=== PATIENT | female | born 1965 | race Hispanic/Latino ===

== ENCOUNTER 2024-04-22 06:29 | Day surgery (SDC) | payer BC ==
[2024-04-21 11:47] LABS: Absolute Basophils 0.1 K/uL (0-0.5); Absolute Eosinophils 0.2 K/uL (0-0.5); Absolute Lymphocytes (CBC) 2.7 K/uL (0.7-4.9); Absolute Monocytes 0.5 K/uL (0.1-1.3); Absolute Neutrophil 3.9 K/uL (1.8-8.0); Eosinophils % 2.6 % (0-4.4); Hematocrit 39.6 % (36.0-45.0); Hemoglobin 13.2 g/dL (12.0-15.0); Lymphocytes % 36.6 % (15.3-44.8); MCH 31.9 pg (27.0-35.0); MCHC 33.3 g/dL (32.0-36.0); MCV 95.8 fL (80-100); MPV 8.9 fL (7.6-11.3); Monocytes % 6.9 % (3.3-12.3); Neutrophils % 52.9 % (41.7-73.7); Platelets 273 thou/uL (152-406); RBC Red Blood Cell Count 4.14 M/uL (3.86-4.86); Red Cell Distribution Width 13.6 % (12.1-15.2)
[2024-04-21 12:00] LABS: Anion Gap 8.8 mEq/L (5.0-15.0); Potassium 3.8 mEq/L (3.5-5.1)
--- NOTE | 2024-04-21 12:33 | RAD REPORT ---
EXAM: Chest Pa And Lat (2 Views) HISTORY: pre operative COMPARISON: None. FINDINGS: LUNGS/PLEURA: The lungs are clear. No pleural effusions or pneumothorax. No pulmonary edema. MEDIASTINUM: The mediastinal silhouette is within normal limits. CARDIAC: The cardiac silhouette is within normal limits. UPPER ABDOMEN: No significant abnormality. BONES: No acute fracture. Scoliosis. LINES/TUBES/OTHER: N/A IMPRESSION: No evidence of acute cardiopulmonary disease.
[2024-04-22] MEDS: Ringers Lactate 1,000 ML IV ONE (07:00)
[2024-04-22] MEDS ORDERED: FENTANYL CITR 100 MCG/2 ML ONE ×3 (07:12→08:05)
[2024-04-22] MEDS ORDERED: propofoL 200 MG/20 ML VIAL IV ONE ×2 (07:12→07:19)
[2024-04-22] MEDS ORDERED: MIDAZOLAM HCL 2 MG/2 ML INJ ONE ×2 (07:12→07:19)
[2024-04-22] MEDS ORDERED: ONDANSETRON 4 MG/2 ML VIAL ONE (07:12)
[2024-04-22] MEDS ORDERED: ROCURONIUM 50 MG/5 ML VIAL IV ONE ×2 (07:12→07:19)
[2024-04-22] MEDS ORDERED: LIDOCAINE 2% MPF 5 ML VIAL ONE (07:12)
[2024-04-22] MEDS: CEFAZOLIN SODIUM 1 GM/VIAL ONE (07:42)
[2024-04-22] MEDS ORDERED: dexAMETHasone 10 MG/ML VIAL ONE (07:44)
[2024-04-22] MEDS ORDERED: GLYCOPYRROLATE 0.2 MG/ML SYR ONE (07:48)
[2024-04-22] MEDS ORDERED: KETOROLAC 30 MG/ML INJ ONE (09:09)
[2024-04-22] MEDS: HYDROMORPHONE HCL 1 MG/ML INJ ONE (09:50)
--- NOTE | 2024-04-22 09:50 | P.BOP ---
Preoperative diagnosis: large ventral umbilical hernia 9.1 cm Postoperative diagnosis: same Primary procedure: 1. Laparoscopic repair of large ventral umbilical hernia with mesh Secondary procedure: 2. Extensive Lysis of adhesions Estimated blood loss: <50cc Specimen: sac, omentum Findings: Large amt of incarcerated omentum ligated Anesthesia: General Complications: None Implants: large ventralex mesh Transferred to: Recovery Room Condition: Good
[2024-04-22] MEDS: TRAMADOL HCL 50 MG TAB ONE (10:32)
[2024-04-22 11:01] VITALS: BP 132/62; TEMP 97; O2SAT 96
--- NOTE | 2024-04-22 19:58 | OP ---
Date of Procedure: 04/22/2024 Surgeon: Saeid Gabriel MD Preoperative Diagnosis: Large ventral umbilical hernia, 9.1 cm. Postoperative Diagnosis: Large ventral umbilical hernia, 9.1 cm. Procedures: Laparoscopic repair of large ventral umbilical hernia with mesh and extensive lysis of a dhesions. Estimated Blood Loss: Less than 50 cc. Specimens: Sac and omentum. Findings: Large amount of omentum incarcerated on the hernia. The is about 9.1 cm. The defect in the ventral region is about 3 cm. There is also a large amount of omentum that cannot be r educed, have to be ligated. Also, intraabdominal adhesions with omentum attached to the anterior abd ominal wall that have to be removed before the mesh can be placed in. The part of the lysis of adhes ions took about half the time of the entire case. Anesthesia: General plus local. Complications: None. Mesh: Ventralex large size. Indications: This is the case of a 59-year-old patient who came to us with a large umbilical hernia, incarcerated. The benefits, alternatives, and risks of excision with mesh were fully explained, whi ch include, but not limited to infection, bleeding, damage to adjacent structures, anesthesia complic ation, recurrence, DC, and even . She also understands this may not relieve any symptoms. She might need more than one surgical intervention. She understood, signed a consent. Description Of Procedure: The patient was brought to the operating room, placed in supine position. Anesthesia was without complication. Abdominal area was prepped and draped in a sterile fashion. A time-out was called. Incision was made on the periumbilical area. Incision was carried down to the hernia region, but incarceration was so large that we had to extend the incision in the belly button to be able to secure that omentum in place and ligate most of that omentum coming through between Ke lly clamps and 0 chromic. At that moment, we were able to reduce that, removed the hernia sac, and n oticed the fascial edges needs some reinforcement with the mesh due to the quality of it, so we put a Prolene #1 in a [id number] fashion multiple times and then after that, we put a Adamaris trocar t hrough the defect. This allowed me to visualize the area a little bit better. I put a 5 mm trocar t o the left and right of the abdomen, changed the cameras, and noticed the patient has still many adhe sions of omentum to the anterior abdominal wall. So, using the LigaSure, we proceeded to sequentiall y remove those adhesions until we have the anterior abdominal wall completely clean. In that area, w e were able to measure the size of the hernia properly and then selected the mesh to overlap the defe ct by about 3-5 cm. That was a large Ventralex mesh that was placed through the trocar, pulled again st the abdominal wall. I used SorbaFix to fixate multiple points under direct visualization with the video camera. Then, after that, we cut the straps of this mesh and then tied the buiftu-ye-ncora fa shion #1 Prolene to close the defect obtaining a seal closure. Then, with pneumoperitoneum once agai n obtained, we further fixated the mesh to the anterior abdominal wall circumferentially to diminish the chance of any intestines coming in between. After that, I checked for the area of lysis of adhes ions, no bleeding. Omentum that was ligated, no bleeding. No enterotomies. Mesh looked nice and fl at against the abdominal wall. So, the pneumoperitoneum was deflated and then we had to close the la rge cavity that the content of this hernia was left in the subcutaneous tissue to diminish the chance of seroma. We used that with the help of 0 chromic and then closed the defects with 3-0 chromic in a subcuticular fashion after injecting local anesthetic. Irrigation was done before closure. The pa giovana tolerated the procedure well. The patient was sent to recovery in stable condition. PEGGY/YULISSA Voice ID: [id number] Report ID: [id number]
--- NOTE | 2024-04-23 08:35 | DS ---
Date of Discharge: 04/22/2024 Diagnosis: Large ventral umbilical hernia. Procedures: Laparoscopic repair of large ventral umbilical hernia with mesh and extensive lysis of a dhesions. Disposition: The patient will be discharged home. Condition: Stable. Activity: As tolerated. No heavy lifting. Discharge Instructions: Follow up in my office in 1 week. Call for appointment [phone]. Keep area intact until she sees us once again in the office. Abdominal binder while she is out of bed. PEGGY/YULISSA Voice ID: [id number] Report ID: [id number]
== END 2024-04-22 11:11 | disposition home or self-care (01) ==
LOC: OR 06:29
PROVIDERS: ATTEND Surgery
PROC: 0DNU4ZZ Release Omentum, Percutaneous Endoscopic Approach (ICD-10-PCS; 2024-04-22)
PROC: 0WUF4JZ Supplement Abdominal Wall with Synthetic Substitute, Percutaneous Endoscopic Approach (ICD-10-PCS; principal; 2024-04-22 07:30)
DX: K42.0 Umbilical hernia with obstruction, without gangrene (principal); K66.0 Peritoneal adhesions (postprocedural) (postinfection); I10 Essential (primary) hypertension; F32.A Depression, unspecified
CPT/HCPCS: 49329; 93005; 85025; 80048; 36415; 88302; 71046; 49594; J2704; J2003; J2250; J3010 ×2; J1100; J1171; J2405; J7120; J0690

== ENCOUNTER 2025-03-10 12:37 | Observation (INO) | payer BC ==
--- OUTSIDE RECORDS SUMMARY | 2025-03-10 12:42 | XMS REPORT | Continuity of Care Document ---
Author Name Unknown Address [address] [facility] [facility] [address] [place] [address] Organization [facility] Address [address] [facility] [address] [place] [address] Care Team Providers Care Ski Tow Operator Name Role Phone Lanre Caballero Attending Clinician Unavailable Payers Payer Name Policy Type Policy Number Effective Date Expirati on Date Source [facility] [id number] [facility] AETNA 53 [id number] [facility] Problems Condition Name Condition Details Condition Category Status Onset Date Resolution Date Last Treatment Date Treating Clinician Comments Source Adult BMI 38.0-38.9 kg/sq m Adult BMI 38.0-38.9 kg/sq m Problem [facility] Morbid obesity due to excess calories Morbid obesity due to excess calories Problem [facility] Stage 3a chronic kidney disease Stage 3a chronic kidney disease Problem [facility] Pain, joint, knee, right Pain, joint, knee, right Problem [facility] Unilateral primary osteoarthr itis, left knee Unilateral primary osteoarthr itis, left knee Problem [facility] Tobacco use disorder Tobacco use disorder Problem [facility] Body mass index (BMI) of 40.0-44.9 in adult Body mass index (BMI) of 40.0-44.[address] [facility] Sciatica, right side Sciatica, right side Problem [facility] Abnormal mammogram Abnormal mammogram Problem [facility] Primary osteoarthr itis of right knee Primary osteoarthr itis of right knee Problem [facility] Depression with anxiety Depression with anxiety Problem [facility] Mixed hyperlipid emia Mixed hyperlipid emia Problem [facility] HTN, goal below 140/90 HTN, goal below 140/[address] [facility] Hyperkalem ia Hyperkalem ia Problem [facility] Allergies, Adverse Reactions, Alerts Allergy Name Allergy Type Status Severity Reaction(s) Onset Date Inactive Date Treating Clinician Comments Source Codeine Codeine Active Unknown [facility] Social History Social Habit Start Date Stop Date Quantity Comments Source History of Tobacco Use Current Smoker [facility] Sex Assigned At [facility] Smoking Status Start Date Stop Date Source Current Smoker 2025-02-18 00:00:00 [facility] Never Smoker [facility] Medications Ordered Medication Name Filled Medication Name Start Date Stop Date Current Medication? Ordering Clinician Indication Dosage Frequency Signature (SIG) Comments Components Source Depo Medrol (40mg) Depo Medrol (40mg) 01-29 00:00: [address] [facility] Bupivicaine Warwick Bupivicaine Warwick 01-29 00:00: [address] [facility] Losartan Potassium-H CTZ 50-12.5 MG Losartan Potassium-H CTZ 50-12.5 MG No 1{table t} QD Losartan Potassium- HCTZ 50-12.5 MG Montelukast Sodium 10 MG Montelukast Sodium 10 MG No 1{table t} QD Montelukas t Sodium 10 MG Gabapentin 300 MG Gabapentin 300 MG No 1{capsu le} QD Gabapentin 300 MG Citalopram Hydrobromid e 20 MG Citalopram Hydrobromid e 20 MG No 1{table t} QD Citalopram Hydrobromi de 20 MG Immunizations Ordered Immunization Name Filled Immunization Name Date Status Comments Source Afluria single dose Afluria single dose 08:05:[address] [facility] Afluria single dose Afluria single dose 08:05:[address] [facility] Afluria single dose Afluria single dose 08:05:[address] [facility] Afluria single dose Afluria single dose 08:05:[address] [facility] Pneumovax (PPSV23) Pneumovax (PPSV23) 2019-04-17 09:25:[address] [facility] Pneumovax (PPSV23) Pneumovax (PPSV23) 2019-04-17 09:25:[address] [facility] Pneumovax (PPSV23) Pneumovax (PPSV23) 2019-04-17 09:25:[address] [facility] Pneumovax (PPSV23) Pneumovax (PPSV23) 2019-04-17 09:25:[address] [facility] Adacel (Tdap) Adacel (Tdap) 2019-04-17 09:24:[address] [facility] Adacel (Tdap) Adacel (Tdap) 2019-04-17 09:24:[address] [facility] Adacel (Tdap) Adacel (Tdap) 2019-04-17 09:24:[address] [facility] Adacel (Tdap) Adacel (Tdap) 2019-04-17 09:24:[address] [facility] Depo Medrol (40mg) Depo Medrol (40mg) 2018-01-29 09:06:[address] [facility] Bupivicaine Warwick Bupivicaine Warwick 2018-01-29 09:04:[address] [facility] Afluria single dose Afluria single dose Unknown Completed [facility] Pneumovax (PPSV23) Pneumovax (PPSV23) Unknown Completed [facility] Adacel (Tdap) Adacel (Tdap) Unknown Completed [facility] Afluria single dose Afluria single dose Unknown Completed [facility] Pneumovax (PPSV23) Pneumovax (PPSV23) Unknown Completed [facility] Adacel (Tdap) Adacel (Tdap) Unknown Completed [facility] Afluria single dose Afluria single dose Unknown Completed [facility] Pneumovax (PPSV23) Pneumovax (PPSV23) Unknown Completed [facility] Adacel (Tdap) Adacel (Tdap) Unknown Completed [facility] Afluria single dose Afluria single dose Unknown Completed [facility] Pneumovax (PPSV23) Pneumovax (PPSV23) Unknown Completed [facility] Adacel (Tdap) Adacel (Tdap) Unknown Completed [facility] Adacel (Tdap) Adacel (Tdap) Unknown Completed [facility] Pneumovax (PPSV23) Pneumovax (PPSV23) Unknown Completed [facility] Afluria single dose Afluria single dose Unknown Completed [facility] Afluria single dose Afluria single dose Unknown Completed [facility] Pneumovax (PPSV23) Pneumovax (PPSV23) Unknown Completed [facility] Adacel (Tdap) Adacel (Tdap) Unknown Completed [facility] Afluria (IIV4) - 3 years and older - SDS - 0.5mL Afluria (IIV4) - 3 years and older - SDS - 0.5mL Unknown Completed [facility] Pneumovax (PPSV23) Pneumovax (PPSV23) Unknown Completed [facility] Adacel (Tdap) Adacel (Tdap) Unknown Completed Co [facility] Afluria (IIV4) - 3 years and older - SDS - 0.5mL Afluria (IIV4) - 3 years and older - SDS - 0.5mL Unknown Completed [facility] Pneumovax (PPSV23) Pneumovax (PPSV23) Unknown Completed [facility] Adacel (Tdap) Adacel (Tdap) Unknown Completed [facility] Afluria (IIV4) - 3 years and older - SDS - 0.5mL Afluria (IIV4) - 3 years and older - SDS - 0.5mL Unknown Completed [facility] Pneumovax (PPSV23) Pneumovax (PPSV23) Unknown Completed [facility] Adacel (Tdap) Adacel (Tdap) Unknown Completed Co on [facility] Afluria (IIV4) - 3 years and older - SDS - 0.5mL Afluria (IIV4) - 3 years and older - SDS - 0.5mL Unknown Completed [facility] Pneumovax (PPSV23) Pneumovax (PPSV23) Unknown Completed [facility] Adacel (Tdap) Adacel (Tdap) Unknown Completed Co on [facility] Afluria (IIV4) - 3 years and older - SDS - 0.5mL Afluria (IIV4) - 3 years and older - SDS - 0.5mL Unknown Completed [facility] Pneumovax (PPSV23) Pneumovax (PPSV23) Unknown Completed [facility] Adacel (Tdap) Adacel (Tdap) Unknown Completed Co on [facility] Afluria (IIV4) - 3 years and older - SDS - 0.5mL Afluria (IIV4) - 3 years and older - SDS - 0.5mL Unknown Completed [facility] Pneumovax (PPSV23) Pneumovax (PPSV23) Unknown Completed [facility] Adacel (Tdap) Adacel (Tdap) Unknown Completed Co on [facility] Afluria (IIV4) - 3 years and older - SDS - 0.5mL Afluria (IIV4) - 3 years and older - SDS - 0.5mL Unknown Completed [facility] Pneumovax (PPSV23) Pneumovax (PPSV23) Unknown Completed [facility] Adacel (Tdap) Adacel (Tdap) Unknown Completed Co on [facility] Afluria (IIV4) - 3 years and older - SDS - 0.5mL Afluria (IIV4) - 3 years and older - SDS - 0.5mL Unknown Completed [facility] Pneumovax (PPSV23) Pneumovax (PPSV23) Unknown Completed [facility] Adacel (Tdap) Adacel (Tdap) Unknown Completed Co on [facility] Afluria (IIV4) - 3 years and older - SDS - 0.5mL Afluria (IIV4) - 3 years and older - SDS - 0.5mL Unknown Completed [facility] Pneumovax (PPSV23) Pneumovax (PPSV23) Unknown Completed [facility] Adacel (Tdap) Adacel (Tdap) Unknown Completed Co [facility] Fluad (IIV) - SDS - 0.5mL Fluad (IIV) - SDS - 0.5mL Unknown Completed [facility] Vital Signs Vital Name Observation Time Observation Value Comments S ource height 2025-02-18 15:30:00 63.5 [in_i] Comm on [facility] weight 2025-02-18 15:30:00 232 [lb_av] Comm on [facility] temperature 2025-02-18 15:30:00 97.3 [degF] Com mon [facility] bmi 2025-02-18 15:30:00 40.45 kg/m2 Comm on [facility] oximetry 2025-02-18 15:30:00 99 % Commo n [facility] respiratory rate 2025-02-18 15:30:00 16 /min [facility] blood pressure systolic 2025-02-18 15:30:00 126 mm[Hg] [facility] blood pressure diastolic 2025-02-18 15:30:00 80 mm[Hg] [facility] height 2024-11-17 15:15:00 63.5 [in_i] Comm on [facility] weight 2024-11-17 15:15:00 228 [lb_av] Comm on [facility] temperature 2024-11-17 15:15:00 97.2 [degF] Com mon [facility] bmi 2024-11-17 15:15:00 39.75 kg/m2 Comm on [facility] oximetry 2024-11-17 15:15:00 94 % Commo n [facility] respiratory rate 2024-11-17 15:15:00 16 /min Common [facility] blood pressure systolic 2024-11-17 15:15:00 124 mm[Hg] [facility] blood pressure diastolic 2024-11-17 15:15:00 76 mm[Hg] Common [facility] height 2024-07-22 14:30:00 63.5 [in_i] Comm on [facility] weight 2024-07-22 14:30:00 222.2 [lb_av] Co mmon [facility] temperature 2024-07-22 14:30:00 97.3 [degF] Com mon [facility] bmi 2024-07-22 14:30:00 38.74 kg/m2 Comm on [facility] oximetry 2024-07-22 14:30:00 96 % Commo [facility] heart rate 2024-07-22 14:30:00 78 /min Com[facility] respiratory rate 2024-07-22 14:30:00 17 /min Common [facility] blood pressure systolic 2024-07-22 14:30:00 112 mm[Hg] Common [facility] blood pressure diastolic 2024-07-22 14:30:00 68 mm[Hg] [facility] height 2024-03-02 14:30:00 63.5 [in_i] Comm on [facility] weight 2024-03-02 14:30:00 221.3 [lb_av] Co mmon [facility] temperature 2024-03-02 14:30:00 97.7 [degF] Com mon [facility] bmi 2024-03-02 14:30:00 38.58 kg/m2 Comm on [facility] blood pressure systolic 2024-03-02 14:30:00 138 mm[Hg] Common [facility] blood pressure diastolic 2024-03-02 14:30:00 81 mm[Hg] [facility] height 2024-01-22 13:30:00 63.5 [in_i] Comm on [facility] weight 2024-01-22 13:30:00 222 [lb_av] Comm on [facility] temperature 2024-01-22 13:30:00 97.3 [degF] Com mon [facility] bmi 2024-01-22 13:30:00 38.7 kg/m2 Commo [facility] oximetry 2024-01-22 13:30:00 95 % Commo [facility] respiratory rate 2024-01-22 13:30:00 17 /min Common [facility] blood pressure systolic 2024-01-22 13:30:00 128 mm[Hg] [facility] blood pressure diastolic 2024-01-22 13:30:00 58 mm[Hg] Common [facility] height 2024-01-22 13:30:00 63.5 [in_i] Comm on [facility] weight 2024-01-22 13:30:00 222 [lb_av] Comm on [facility] temperature 2024-01-22 13:30:00 97.3 [degF] Com mon [facility] bmi 2024-01-22 13:30:00 38.7 kg/m2 Commo [facility] oximetry 2024-01-22 13:30:00 95 % Commo [facility] respiratory rate 2024-01-22 13:30:00 17 /min Common [facility] blood pressure systolic 2024-01-22 13:30:00 128 mm[Hg] Common [facility] blood pressure diastolic 2024-01-22 13:30:00 58 mm[Hg] Common [facility] height 2023-05-14 16:00:00 63.5 [in_i] Comm on [facility] weight 2023-05-14 16:00:00 186.6 [lb_av] Co on [facility] bmi 2023-05-14 16:00:00 32.53 kg/m2 Comm on [facility] height 2023-01-09 15:40:00 63.5 [in_i] Comm on [facility] weight 2023-01-09 15:40:00 220.0 [lb_av] Co [facility] temperature 2023-01-09 15:40:00 98.2 [degF] Com mon [facility] bmi 2023-01-09 15:40:00 38.36 kg/m2 Comm on [facility] oximetry 2023-01-09 15:40:00 97 % Commo [facility] respiratory rate 2023-01-09 15:40:00 17 /min Common [facility] blood pressure systolic 2023-01-09 15:40:00 123 mm[Hg] Common [facility] blood pressure diastolic 2023-01-09 15:40:00 68 mm[Hg] Common [facility] height 2022-09-11 15:40:00 63.5 [in_i] Comm on [facility] weight 2022-09-11 15:40:00 211 [lb_av] Comm on [facility] temperature 2022-09-11 15:40:00 98 [degF] Comm on [facility] bmi 2022-09-11 15:40:00 36.79 kg/m2 Comm on [facility] blood pressure systolic 2022-09-11 15:40:00 132 mm[Hg] [facility] blood pressure diastolic 2022-09-11 15:40:00 72 mm[Hg] [facility] height 2022-09-04 15:00:00 63.5 [in_i] Comm on [facility] weight 2022-09-04 15:00:00 211.9 [lb_av] Co mmon [facility] temperature 2022-09-04 15:00:00 97.6 [degF] Com mon [facility] bmi 2022-09-04 15:00:00 36.94 kg/m2 Comm on [facility] blood pressure systolic 2022-09-04 15:00:00 136 mm[Hg] Common [facility] blood pressure diastolic 2022-09-04 15:00:00 78 mm[Hg] Common [facility] height 2022-05-08 16:50:00 63.5 [in_i] Comm on [facility] weight 2022-05-08 16:50:00 220 [lb_av] Comm on [facility] temperature 2022-05-08 16:50:00 98 [degF] Comm on [facility] bmi 2022-05-08 16:50:00 38.36 kg/m2 Comm on [facility] blood pressure systolic 2022-05-08 16:50:00 138 mm[Hg] [facility] blood pressure diastolic 2022-05-08 16:50:00 76 mm[Hg] Common [facility] height 2022-01-08 08:00:00 63.5 [in_i] Comm on [facility] weight 2022-01-08 08:00:00 221 [lb_av] Comm on [facility] temperature 2022-01-08 08:00:00 97.6 [degF] Com mon [facility] bmi 2022-01-08 08:00:00 38.53 kg/m2 Comm on [facility] oximetry 2022-01-08 08:00:00 96 % Commo n [facility] respiratory rate 2022-01-08 08:00:00 16 /min [facility] blood pressure systolic 2022-01-08 08:00:00 142 mm[Hg] [facility] blood pressure diastolic 2022-01-08 08:00:00 83 mm[Hg] Common [facility] height 2021-08-28 16:00:00 62 [in_i] Commo n [facility] weight 2021-08-28 16:00:00 230 [lb_av] Comm on [facility] temperature 2021-08-28 16:00:00 98 [degF] Comm on [facility] bmi 2021-08-28 16:00:00 42.06 kg/m2 Comm on [facility] blood pressure systolic 2021-08-28 16:00:00 135 mm[Hg] [facility] blood pressure diastolic 2021-08-28 16:00:00 72 mm[Hg] Common [facility] height 2021-02-02 11:20:00 62 [in_i] Commo n [facility] weight 2021-02-02 11:20:00 230.8 [lb_av] Co [facility]mon [facility] temperature 2021-02-02 11:20:00 97.2 [degF] Com mon [facility] bmi 2021-02-02 11:20:00 42.21 kg/m2 Comm on [facility] oximetry 2021-02-02 11:20:00 95 % Commo [facility] respiratory rate 2021-02-02 11:20:00 17 /min [facility] blood pressure systolic 2021-02-02 11:20:00 132 mm[Hg] [facility] blood pressure diastolic 2021-02-02 11:20:00 70 mm[Hg] [facility] Encounters Start Date/Time End Date/Time Encounter Type Admission Type Attending Clinicians Care Facility Care Department Encounter ID Source 2024-03-03 08:10:00 Outpatient Caballero, Lanre [facility] [id number] [facility] 2024-02-25 11:22:00 Outpatient Caballero, Lanre [facility] [id number] [facility] 2024-01-10 08:40:00 Outpatient Caballero, Lanre [facility] [id number] [facility] 2023-04-05 10:29:00 Outpatient Caballero, Lanre [facility] [id number] [facility] 2022-09-05 11:07:00 Outpatient Caballero, Lanre [facility] [id number] [facility] 2022-08-28 11:32:00 Outpatient Caballero, Lanre [facility] [id number] [facility] 2022-05-07 16:15:01 Outpatient Caballero, Lanre [facility] [id number] [facility] 2022-01-11 14:07:01 Outpatient Caballero, Lanre [facility] [id number] [facility] 2022-01-08 09:14:01 Outpatient Caballero, Lanre [facility] [id number] [facility] 2021-09-19 07:09:01 Outpatient Caballero, Lanre [facility] [id number] [facility] 2021-07-05 13:38:20 Outpatient Caballero, Lanre [facility] [id number] [facility] 2021-07-05 12:39:18 Outpatient Caballero, Lanre [facility] [id number] [facility] 2021-07-05 12:38:40 Outpatient Caballero, Lanre [facility] [id number] [facility] 2021-07-05 12:38:11 Outpatient Caballero, Lanre [facility] [id number] [facility] 2021-07-05 12:36:38 Outpatient Caballero, Lanre [facility] [id number] [facility] 2021-07-05 12:20:30 Outpatient Caballero, Lanre [facility] [id number] [facility] 2021-07-05 12:20:24 Outpatient Caballero, Lanre [facility] [id number] [facility] 2021-07-05 12:07:26 Outpatient Caballero, Lanre [facility] [id number] [facility] 2021-07-05 12:06:10 Outpatient Caballero, Lanre [facility] [id number] [facility] 2021-07-05 10:58:44 Outpatient Caballero, Lanre [facility] [id number] [facility] 2025-02-18 00:00:00 2025-02-18 00:00:00 (WELLNESS) [facility] [id number] [facility] 2025-01-20 00:00:00 2025-01-20 00:00:00 (TEL) [facility] [id number] [facility] 2024-12-14 00:00:00 2024-12-14 00:00:00 (TEL) [facility] [id number] [facility] 2024-11-17 00:00:00 2024-11-17 00:00:00 OFFICE VISIT ESTAB PT LEVEL [id number] [facility] 2024-11-11 00:00:00 2024-11-11 00:00:00 (TEL) [facility] [id number] [facility] 2024-10-19 00:00:00 2024-10-19 00:00:00 (TEL) [facility] [id number] [facility] 2024-09-15 00:00:00 2024-09-15 00:00:00 (TEL) [facility] [id number] [facility] 2024-09-08 00:00:00 2024-09-08 00:00:00 (TEL) [facility] [id number] [facility] 2024-07-22 00:00:00 2024-07-22 00:00:00 OFFICE VISIT ESTAB PT LEVEL [id number] [facility] 2024-07-13 00:00:00 2024-07-13 00:00:00 (TEL) [facility] [id number] [facility] 2024-03-03 00:00:00 2024-03-03 00:00:00 (TEL) [facility] [id number] [facility] 2024-03-02 00:00:00 2024-03-02 00:00:00 OFFICE VISIT ESTAB PT LEVEL [id number] [facility] 2024-01-29 00:00:00 2024-01-29 00:00:00 (TEL) [facility] [id number] [facility] 2024-01-22 00:00:00 2024-01-22 00:00:00 PREV VISIT EST AGE 40-64 [facility] [id number] [facility] 2024-01-10 00:00:00 2024-01-10 00:00:00 (TEL) [facility] [id number] [facility] 2023-12-02 00:00:00 2023-12-02 00:00:00 (TEL) [facility] [id number] [facility] 2023-07-10 00:00:00 2023-07-10 00:00:00 (TEL) [facility] [id number] [facility] 2023-05-27 00:00:00 2023-05-27 00:00:00 (TEL) [facility] [id number] [facility] 2023-05-14 00:00:00 2023-05-14 00:00:00 OFFICE VISIT ESTAB PT LEVEL [id number] [facility] 2023-04-05 00:00:00 2023-04-05 00:00:00 (TEL) [facility] [id number] [facility] 2023-02-04 00:00:00 2023-02-04 00:00:00 (TEL) [facility] [id number] [facility] 2023-01-31 00:00:00 2023-01-31 00:00:00 (TEL) [facility] [id number] [facility] 2023-01-09 00:00:00 2023-01-09 00:00:00 PREV VISIT EST AGE 40-64 [facility] [id number] [facility] 2023-01-02 00:00:00 2023-01-02 00:00:00 (TEL) [facility] [id number] [facility] 2022-10-18 00:00:00 2022-10-18 00:00:00 (TEL) [facility] [id number] [facility] 2022-10-03 00:00:00 2022-10-03 00:00:00 (TEL) [facility] [id number] [facility] 2022-10-03 00:00:00 2022-10-03 00:00:00 (TEL) [facility] [id number] [facility] 2022-09-11 00:00:00 2022-09-11 00:00:00 OFFICE VISIT ESTAB PT LEVEL [id number] [facility] 2022-09-04 00:00:00 2022-09-04 00:00:00 OFFICE VISIT NEW PT LEVEL [id number] [facility] 2022-08-14 00:00:00 2022-08-14 00:00:00 (TEL) [facility] [id number] [facility] 2022-05-08 00:00:00 2022-05-08 00:00:00 OFFICE VISIT ESTAB PT LEVEL [id number] [facility] 2022-04-12 00:00:00 2022-04-12 00:00:00 (TEL) [facility] [id number] [facility] 2022-01-26 00:00:00 2022-01-26 00:00:00 (TEL) [facility] [id number] [facility] 2022-01-10 00:00:00 2022-01-10 00:00:00 (TEL) [facility] [id number] [facility] 2022-01-08 00:00:00 2022-01-08 00:00:00 (WELLNESS) Wellness Visit [facility] [id number] [facility] 2022-01-08 00:00:00 2022-01-08 00:00:00 (TEL) [facility] [id number] [facility] 2021-08-28 00:00:00 2021-08-28 00:00:00 OFFICE VISIT EST PT LEVEL [id number] [facility] 2021-08-16 00:00:00 2021-08-16 00:00:00 (TEL) [facility] [id number] [facility] 2021-06-01 00:00:00 2021-06-01 00:00:00 (TEL) [facility] [id number] [facility] 2021-02-02 00:00:00 2021-02-02 00:00:00 OFFICE VISIT EST PT LEVEL [id number] [facility] 2020-11-24 00:00:00 2020-11-24 00:00:00 Outpatient [facility] [id number] [facility] 2020-09-21 00:00:00 2020-09-21 00:00:00 Outpatient [facility] [id number] [facility] 2020-08-18 00:00:00 2020-08-18 00:00:00 Outpatient [facility] [id number] [facility] 2020-08-12 00:00:00 2020-08-12 00:00:00 Outpatient [facility] [id number] [facility] 2020-06-27 00:00:00 2020-06-27 00:00:00 Outpatient [facility] [id number] [facility] 2020-06-23 00:00:00 2020-06-23 00:00:00 Outpatient [facility] [id number] [facility] 2020-06-22 00:00:00 2020-06-22 00:00:00 Outpatient [facility] [id number] [facility] 2020-05-12 00:00:00 2020-05-12 00:00:00 Outpatient [facility] [id number] [facility] 2020-04-05 00:00:00 2020-04-05 00:00:[address] [address] [id number] [facility] 2020-03-24 00:00:00 2020-03-24 00:00:[id number] [facility] 2019-12-15 13:14:00 2019-12-15 13:14:00 [facility] [id number] [facility] 2019-12-08 10:40:00 2019-12-08 10:40:00 [facility] [id number] [facility] 2019-11-04 15:00:00 2019-11-04 15:00:00 [facility] [id number] [facility] 2019-06-25 08:26:00 2019-06-25 08:26:00 [facility] [id number] [facility] 2019-06-17 16:30:00 2019-06-17 16:30:00 [facility] [id number] [facility] 2019-06-17 13:50:00 2019-06-17 13:50:00 [facility] [id number] [facility] Results Test Description Test Time Test Comments Results Result Co mments Source CBC W/AUTO [id number] 00:00:00* Test Item Value Reference Range Interpretation Comme nts NUCLEATED RBCS (test code = 01325-1) 0.0 /100 WBC'S See_Comment [Automated messa ge] The system which generated this result transmitted reference range: 0.0 /100 WBC'S. The reference range was not used to interpret this result as normal/abnormal. ABSOLUTE EOSINOPHILS (test code = 63836-3) 0.25 K/UL See_Comment [Automated messa ge] The system which generated this result transmitted reference range: 0.00-0.50 K/UL. The reference range was not used to interpret this result as normal/abnormal. ABSOLUTE LYMPHOCYTES (test code = 41959-3) 1.95 K/UL See_Comment [Automated messa ge] The system which generated this result transmitted reference range: 1.00-4.00 K/UL. The reference range was not used to interpret this result as normal/abnormal. ABSOLUTE MONOCYTES (test code = 48458-0) 0.62 K/UL See_Comment [Automated messa ge] The system which generated this result transmitted reference range: 0.20-1.00 K/UL. The reference range was not used to interpret this result as normal/abnormal. ABSOLUTE NEUTROPHILS (test code = 04890-2) 3.91 K/UL See_Comment [Automated messa ge] The system which generated this result transmitted reference range: 1.50-7.50 K/UL. The reference range was not used to interpret this result as normal/abnormal. BASOPHILS (test code = 82637-4) 0.7 % EOSINOPHILS (test code = 53836-2) 3.7 % HEMATOCRIT (test code = 70048-8) 38.4 % See_Comment [Automated messa ge] The system which generated this result transmitted reference range: 34.0-45.0 %. The reference range was not used to interpret this result as normal/abnormal. HEMOGLOBIN (test code = 718-7) 12.6 G/DL See_Comment [Automated messa ge] The system which generated this result transmitted reference range: 11.5-15.5 G/DL. The reference range was not used to interpret this result as normal/abnormal. LYMPHOCYTES (test code = 68268-7) 28.7 % MCH (test code = 48089-5) 31.3 PG See_Comment [Automated messa ge] The system which generated this result transmitted reference range: 25.0-33.0 PG. The reference range was not used to interpret this result as normal/abnormal. MCHC (test code = 39433-9) 32.8 G/DL See_Comment [Automated messa ge] The system which generated this result transmitted reference range: 31.0-36.0 G/DL. The reference range was not used to interpret this result as normal/abnormal. MCV (test code = 54621-1) 95.3 fL See_Comment [Automated messa ge] The system which generated this result transmitted reference range: 80.0-99.0 fL. The reference range was not used to interpret this result as normal/abnormal. MONOCYTES (test code = 56930-8) 9.1 % NEUTROPHILS (test code = 56717-0) 57.5 % PLATELET COUNT (test code = 71575-4) 298 K/UL See_Comment [Automated messa ge] The system which generated this result transmitted reference range: 130-400 K/UL. The reference range was not used to interpret this result as normal/abnormal. RBC (test code = 80712-9) 4.03 M/UL See_Comment [Automated messa ge] The system which generated this result transmitted reference range: 3.80-5.40 M/UL. The reference range was not used to interpret this result as normal/abnormal. RDW (test code = 38661-2) 12.4 % See_Comment [Automated messa ge] The system which generated this result transmitted reference range: 11.5-15.0 %. The reference range was not used to interpret this result as normal/abnormal. WBC (test code = 77193-3) 6.8 K/UL See_Comment [Automated messa ge] The system which generated this result transmitted reference range: 3.5-11.0 K/UL. The reference range was not used to interpret this result as normal/abnormal. HEMOGLOBIN [id number] 00:00:00* Test Item Value Reference Range Interpretation Comme nts HEMOGLOBIN A1c (test code = 4548-4) 5.6 % See_Comment [Automated messa ge] The system which generated this result transmitted reference range: 4.2-5.6 %. The reference range was not used to interpret this result as normal/abnormal.
--- NOTE | 2025-03-10 13:04 | RAD REPORT ---
EXAMINATION: Ct Stroke Brain Wo Cont CLINICAL INDICATION: Female, 60 years old.STROKE ALERT TECHNIQUE: Axial CT images from the skull base to the vertex without intravenous contrast. Coronal an d sagittal reformatted images were created from the data set. One or more of the following dose reduction techniques were used: Automated exposure control, adjustment of the mA and/or kV according to patient size, and/or iterative reconstruction. Unless otherwise specified, incidental findings do not require dedicated imaging follow-up. [id number]. COMPARISON: No prior exams FINDINGS: INTRACRANIAL: No acute intracranial hemorrhage. No acute large vascular territory infarct. No hydroce phalus. No mass effect or midline shift. Mild chronic small vessel ischemic changes. VASCULATURE: No visualized abnormalities in the arteries or dural venous sinuses. SCALP/SKULL: No calvarial fracture identified. No acute soft tissue abnormality. SINUSES: The visualized paranasal sinuses are mostly clear. No significant mastoid fluid. IMPRESSION: No acute intracranial abnormality. The findings were communicated to Alfonzo Phillip on 03/10/2025 1:01 PM.
[2025-03-10 13:08] LABS: Absolute Lymphocytes (CBC) 2.9 K/uL (0.7-4.9); Hematocrit 37.3 % (36.0-45.0); Hemoglobin 12.4 g/dL (12.0-15.0); MCH 31.7 pg (27.0-35.0); MCHC 33.1 g/dL (32.0-36.0); MCV 95.5 fL (80-100); MPV 9.1 fL (7.6-11.3); Nucleated RBC Absolute Count 0.0 (0-0); Nucleated Red Blood Cells % 0.1 % (0-0); RBC Red Blood Cell Count 3.91 M/uL (3.86-4.86); White Blood Count 8.80 thou/uL (4.3-10.9)
--- NOTE | 2025-03-10 13:12 | RAD REPORT ---
EXAMINATION: Neck Angio CLINICAL INDICATION: Female, 60 years old. Dizziness TECHNIQUE: Axial CT images were obtained from the aortic arch to the skull base after intravenous con trast utilizing angiographic protocol with 3D post-processing (maximum intensity projection images, volume rendered images and/or shaded surface rendered images). One or more of the following dose redu ction techniques were used: Automated exposure control, adjustment of the mA and/or kV according to patient size, and/or iterative reconstruction. Unless otherwise specified, incidental findings do not require dedicated imaging follow-up. [id number]. NASCET criteria used. Mild 0-49% stenosis Moderate 50-69% stenosis Severe 70-99% stenosis COMPARISON: No prior exam. FINDINGS: AORTA: Normal RIGHT: - CCA: No flow limiting stenosis (>= 50%). No dissection. - ICA: No flow limiting stenosis (>= 50%). No dissection. - ECA: No flow limiting stenosis (>= 50%). No dissection. LEFT: - CCA: No flow limiting stenosis (>= 50%). No dissection. - ICA: No flow limiting stenosis (>= 50%). No dissection. - ECA: No flow limiting stenosis (>= 50%). No dissection. VERTEBRAL: Patent SOFT TISSUE: No significant neck soft tissue abnormalities. The visualized lung apices are clear. 3D images confirm these findings. IMPRESSION: No arterial dissection or stenosis identified within the neck.
--- NOTE | 2025-03-10 13:14 | RAD REPORT ---
EXAMINATION: Head angio CLINICAL INDICATION: Female, 60 years old. DIZZINESS TECHNIQUE: Axial CT images were obtained through the head after intravenous contrast utilizing angiog raphic protocol with 3D post-processing (maximum intensity projection images, volume rendered images and/or shaded surface rendered images). One or more of the following dose reduction technique s were used: Automated exposure control, adjustment of the mA and/or kV according to patient size, and/or iterative reconstruction. Unless otherwise specified, incidental findings do not require dedic ated imaging follow-up. COMPARISON: No prior exam. FINDINGS: RIGHT: ICA: No aneurysm, stenosis, or occlusion. [place]: No aneurysm, stenosis, or occlusion. MCA: No aneurysm, stenosis, or occlusion. CONTAMINATION CONSULTANT: No aneurysm, stenosis, or occlusion. LEFT: ICA: No aneurysm, stenosis, or occlusion. [place]: No aneurysm, stenosis, or occlusion. MCA: No aneurysm, stenosis, or occlusion. CONTAMINATION CONSULTANT: No aneurysm, stenosis, or occlusion. Vertebrobasilar: The vertebral arteries are patent. The basilar artery is normal in appearance. 3D images confirm these findings. IMPRESSION: No occlusion, aneurysm, or hemodynamically significant stenosis identified.
[2025-03-10 13:18] LABS: PT Prothrombin Time 11.8 SECONDS (10-13.0); PTT, Activated Partial Thromb 31.9 SECONDS (27.2-37.4); Protime INR 1.05
[2025-03-10 13:26] LABS: Anion Gap 10.8 mEq/L (5.0-15.0); BUN Blood Urea Nitrogen 23.0 mg/dL (7-18); Glucose Level 91.0 mg/dL (74-106); Potassium 3.8 mEq/L (3.5-5.1); Troponin High Sensitivity 10.1 pg/mL (<58.9)
--- NOTE | 2025-03-10 13:35 | RAD REPORT ---
EXAM: Chest Single View HISTORY: 60 years Female SWELLING COMPARISON: 04/21/2024 FINDINGS: LUNGS/PLEURA: The lungs are clear. No pleural effusions or pneumothorax. No pulmonary edema. CARDIAC/MEDIASTINUM: The cardiac silhouette is within normal limits. UPPER ABDOMEN: No significant abnormality. BONES: No acute abnormality. LINES/TUBES/OTHER: N/A IMPRESSION: No evidence of acute cardiopulmonary disease.
[2025-03-10] MEDS ORDERED: NA CHLORIDE 0.9% 1,000 ML ONE (13:43)
--- NOTE | 2025-03-10 14:26 | EDPHYS ---
Physician Documentation [facility] Name: Loly Edouard Age: 60 yrs Sex: Female : 1965 Arrival Date: 03/10/2025 Time: 12:37 Bed 8 Private MD: ED Physician Emmanuel Sears HPI: 03/10 14:22 This 60 yrs old Female presents to ER via Ambulatory with complaints of dr5 Dizziness, confused, S/S of Possible Stroke. 14:22 The patient presents with dizziness. Onset: The symptoms/episode began/occurred at dr5 12:00. Context: occurred at work. Patient's baseline: Neuro: alert and fully oriented, Motor: no deficits, Ambulation: walks without assistance. Patient is a 60-year-old female with history of hypertension coming in with dizziness and inability to find words for approximately 10 minutes that started at noon today. 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 Patient denies symptoms during onset of ER visit. Patient denies numbness, tingling, left or right sided weakness, dizziness. Patient denies symptoms have occurred before in the past.. Historical: - Allergies: 13:08 No Known Allergies; dd2 - Home Meds: 13:25 losartan-hydrochlorothiazide 50-12.5 mg oral tablet daily [Active]; gabapentin 300 mg iw oral capsule daily [Active]; citalopram 20 mg tablet daily [Active]; montelukast 10 mg oral tablet every evening [Active]; ibuprofen 800 mg Oral tablet [Active]; Tessalon Perles Oral [Active]; - PMHx: 13:08 Hypertensive disorder; ALLERGIES; dd2 - PSHx: 13:08 HERNIA REPAIR; dd2 - Immunization history:: Adult Immunizations unknown. - Infectious Disease History:: Denies. - Social history:: Smoking status: Patient reports the use of cigarette tobacco products, smokes one pack cigarettes per day. ROS: 14:22 Constitutional: as per hpi dr5 Exam: 14:22 Constitutional: This is a well developed, well nourished patient who is awake, alert, dr5 and in no acute distress. Head/Face: Normocephalic, atraumatic. Eyes: Pupils equal round and reactive to light, extra-ocular motions intact. Lids and lashes normal. Conjunctiva and sclera are non-icteric and not injected. Cornea within normal limits. Periorbital areas with no swelling, redness, or edema. ENT: Nares patent. No nasal discharge, no septal abnormalities noted. Tympanic membranes are normal and external auditory canals are clear. Oropharynx with no redness, swelling, or masses, exudates, or evidence of obstruction, uvula midline. Mucous membranes moist. Chest/axilla: Normal chest wall appearance and motion. Nontender with no deformity. No lesions are appreciated. Cardiovascular: Regular rate and rhythm with a normal S1 and S2. Normal PMI, no JVD. No pulse deficits. Respiratory: Lungs have equal breath sounds bilaterally, clear to auscultation. No rales, rhonchi or wheezes noted. No increased work of breathing, no retractions or nasal flaring. Back: No spinal tenderness. No costovertebral tenderness. Full range of motion. Skin: Warm, dry with normal turgor. Normal color with no rashes, no lesions, and no evidence of cellulitis. MS/ Extremity: Pulses equal, no cyanosis. Neurovascular intact. Full, normal range of motion. 14:22 Neuro: Orientation: is normal, appropriate for stated age, Mentation: is normal, appropriate for stated age, Memory: is normal, appropriate for stated age, Cranial nerves: CN II- XII are normal as tested, Cerebellar function: is grossly normal, Romberg testing is negative, normal finger to nose testing, heel to hutson testing is normal, Motor: is normal, Sensation: is normal, no obvious gross deficits, appropriate Gait: is steady, Babinski testing is normal, seizure activity, is not displayed by the patient, Vital Signs: 13:00 BP 133 / 64; Pulse 74; Resp 18; Temp 98; Pulse Ox 98% ; db 13:30 BP 134 / 56; Pulse 68; Resp 16; Pulse Ox 98% on R/A; db 14:00 BP 141 / 59; Pulse 81; Resp 16; Pulse Ox 99% ; db 14:30 BP 131 / 39; Pulse 74; Pulse Ox 98% ; db 15:00 BP 128 / 53; Pulse 67; Resp 16; Pulse Ox 98% ; db 15:30 BP 130 / 61; Pulse 70; db 16:00 BP 112 / 60; Pulse 63; Resp 16; Pulse Ox 100% ; db 16:30 BP 129 / 75; Pulse 71; Resp 16; Pulse Ox 96% ; db 17:00 BP 116 / 61; Pulse 70; Resp 16; Pulse Ox 97% ; db 17:30 BP 153 / 72; Pulse 83; Resp 16; Pulse Ox 100% on R/A; db 18:00 BP 134 / 59; Pulse 70; Resp 16; Pulse Ox 99% ; db NIH Stroke Scale Scores: 13:30 NIHSS Score: 0 db 13:30 NIHSS Score: 0 db 15:30 NIHSS Score: 0 db 17:30 NIHSS Score: 0 db Bonilla Coma Score: 16:30 Eye Response: spontaneous(4). Motor Response: obeys commands(6). Verbal Response: db oriented(5). Total: 15. MDM: 12:40 Medical Screening Exam initiated dr5 19:02 Differential diagnosis: cardiac arrhythmia, CVA, TIA, vertigo. Data reviewed: vital dr5 signs, nurses notes, lab test result(s), cardiac enzymes, troponin i, CBC, white blood cell count, hemoglobin, hematocrit, platelets, electrolytes, sodium, potassium, chloride, serum bicarbonate, BUN, creatinine, serum glucose, EKG, radiologic studies, CT scan. Consideration of Admission/Observation Patient was admitted/placed on observation. Management of patient was discussed with the following: Hospitalist: Dr. Bunn. I considered the following discharge prescriptions or medication management in the emergency department I discussed and recommended Over The Counter medications, Medications were administered in the Emergency Department. See MAR. Discussion of test interpretation with radiology: I had a discussion with radiology regarding a test interpretation. Discussed with Dr. Olsen - no thrombus noted and no LVO. Historians other than the Patient: Daughter/Son: Daughter. Care significantly affected by the following chronic conditions: Hypertension. Care significantly affected by the following Social Determinants of Health: Poor access to healthcare and/or lack of insurance, Poor access to transportation, Problems related to employment. Counseling: I had a detailed discussion with the patient and/or guardian regarding the historical points, exam findings, and any diagnostic results supporting the discharge/admit diagnosis, the presence of at least one elevated blood pressure reading (>120/80) during this emergency department visit, lab results, radiology results, the need for further work-up and treatment in the hospital. ED course: Patient has resolution of symptoms as well as NIH of 0. No TNK at this time. Discussed with Dr. Sears who is in agreement with plan. Will admit patient for further management.. 03/10 12:49 Order name: Basic Metabolic Panel; Complete Time: 13: dr5 03/10 12:49 Order name: CBC with Diff; Complete Time: 13: dr5 03/10 12:49 Order name: High Sensitivity Troponin; Complete Time: 13: dr5 03/10 12:49 Order name: Protime (+inr); Complete Time: 13: dr5 03/10 12:49 Order name: Ptt, Activated; Complete Time: 13: dr5 03/10 13:07 Order name: Glucose, Ancillary Testing; Complete Time: 13: EDMS 03/10 13:18 Order name: CREATININE WHOLE BLOOD; Complete Time: 13: EDMS 03/10 17:09 Order name: C-Reactive Protein EDMS 03/10 17:09 Order name: C-Reactive Protein EDMS 03/10 17:09 Order name: CBC with Automated Diff EDMS 03/10 17:09 Order name: CBC with Automated Diff EDMS 03/10 17:09 Order name: Comprehensive Metabolic Panel EDMS 03/10 17:09 Order name: Comprehensive Metabolic Panel EDMS 03/10 17:09 Order name: Lipid Profile EDMS 03/10 17:09 Order name: Lipid Profile EDMS 03/10 17:09 Order name: Magnesium EDMS 03/10 17:09 Order name: Magnesium EDMS 03/10 17:09 Order name: Phosphorus EDMS 03/10 17:09 Order name: Phosphorus EDMS 03/10 17:09 Order name: Protime (+INR) EDMS 03/10 17:09 Order name: Protime (+INR) EDMS 03/10 17:09 Order name: Protime (+INR) EDMS 03/10 17:09 Order name: Protime (+INR) EDMS 03/10 17:09 Order name: Protime (+INR) EDMS 03/10 17:09 Order name: Protime (+INR) EDMS 03/10 17:09 Order name: PTT, Activated Partial Thromb EDMS 03/10 17:09 Order name: PTT, Activated Partial Thromb EDMS 03/10 17:09 Order name: Thyroid Stimulating Hormone EDMS 03/10 17:09 Order name: Thyroid Stimulating Hormone EDMS 03/10 12:49 Order name: CT Head Angio; Complete Time: 13:26 dr5 03/10 12:49 Order name: CT Neck Angio; Complete Time: 13:26 dr5 03/10 12:49 Order name: CT Stroke Brain w/o Contrast; Complete Time: 13:26 dr5 03/10 12:49 Order name: Stroke CXR 1 View; Complete Time: 13:51 dr5 03/10 17:09 Order name: Echo with Doppler [facility] 03/10 12:49 Order name: EKG; Complete Time: 12:50 dr5 03/10 17:09 Order name: Physical Therapy Consult [facility] 03/10 17:09 Order name: Speech Therapy Consult [facility] 03/10 12:49 Order name: Accucheck; Complete Time: 13:48 dr5 03/10 12:49 Order name: Cardiac monitoring; Complete Time: 13:48 dr5 03/10 12:49 Order name: EKG - Nurse/Tech; Complete Time: 13:48 dr5 03/10 12:49 Order name: IV Saline Lock; Complete Time: 13:48 dr5 03/10 12:49 Order name: Labs collected and sent; Complete Time: 13:48 dr5 03/10 12:49 Order name: NPO; Complete Time: 13:51 dr5 03/10 12:49 Order name: O2 Per Protocol; Complete Time: 13:48 dr5 03/10 12:49 Order name: O2 Sat Monitoring; Complete Time: 13:48 dr5 03/10 12:49 Order name: Stroke Swallow Screen; Complete Time: 13:54 dr5 EC:10 Rate is 76 beats/min. Rhythm is regular. QRS [place] is Normal. LA interval is normal at dr5 168 msec. QRS interval is normal at 84 msec. QT interval is normal at 412 msec. Clinical impression: Normal ECG and No evidence of ischemia. Administered Medications: 13:51 Drug: NS 0.9% IV 1000 ml IV at 1000 ml once; to be given as a bolus over 60 minutes db Route: IV; Rate: 1000 ml; Site: right antecubital; 15:17 Follow up: Response: No adverse reaction; IV Status: Completed infusion; IV Intake: db 1000ml 15:30 Drug: Aspirin PO Chewable Tablet 324 mg PO once; 81 mg tablets x 4 Route: PO; bp 15:36 Follow up: Response: No adverse reaction bp Point of Care Testing: Blood Glucose: 13:08 Blood Glucose: 97 mg/dL; dd2 Ranges: Critical Glucose Levels:Adult <50 mg/dl or >400 mg/dl <40 mg/dl or >180 mg/dl Disposition: 14:43 I was immediately available on-site in the Emergency Department for consultation in the ms3 care of the patient. Disposition Summary: 03/10/25 14:25 Hospitalization Ordered Notes: Hospitalization Status: Inpatient Admission dr5 Provider: Carlos Bunn Location: Telemetry/MedSurg (Inpatient) dr5 Condition: Stable dr5 Problem: new dr5 Symptoms: are resolved dr5 Bed/Room Type: Standard [facility] Room Assignment: 208(03/10/25 17:13) bd Diagnosis - Dizziness and giddiness dr5 Forms: - Medication Reconciliation Form dr5 - SBAR form dr5 - Leadership Thank You Letter dr5 NIH Stroke Scale - NIH Stroke Score Date: 03/10/2025 Time: 13:30 Total Score = 0 10. Dysarthria (speech clarity - read or repeat words) - 0(Normal) 11. Extinction and Inattention (visual/tactile/auditory/spatial/personal) - 0(No abnormality) 1a. Level of Consciousness (LOC) - 0(Alert) 1b. Level of Consciousness (LOC) (Month \T\ Age) - 0(Both) 1c. LOC Commands (Open \T\ Closes Eyes/Structural Steel Equipment Erector) - 0(Both) 2. Best Gaze (Lateral Gaze Paresis) - 0(Normal) 3. Visual Field Loss - 0(No visual loss) 4. Facial Palsy - 0(Normal) 5a. Left Arm: Motor (10-second hold) - 0(No drift) 5b. Right Arm: Motor (10-second hold) - 0(No drift) 6a. Left Leg: Motor (5-second hold - always test supine) - 0(No drift) 6b. Right Leg: Motor (5-second hold - always test supine) - 0(No drift) 7. Limb Ataxia (finger/nose \T\ heel/hutson - test with eyes open) - 0(Absent) 8. Sensory Loss (pinprick arms/legs/face) - 0(Normal) 9. Best Language: Aphasia (description/naming/reading) - 0(No aphasia) Initials: db NIH Stroke Scale - NIH Stroke Score Date: 03/10/2025 Time: 13:30 Total Score = 0 10. Dysarthria (speech clarity - read or repeat words) - 0(Normal) 11. Extinction and Inattention (visual/tactile/auditory/spatial/personal) - 0(No abnormality) 1a. Level of Consciousness (LOC) - 0(Alert) 1b. Level of Consciousness (LOC) (Month \T\ Age) - 0(Both) 1c. LOC Commands (Open \T\ Closes Eyes/Structural Steel Equipment Erector) - 0(Both) 2. Best Gaze (Lateral Gaze Paresis) - 0(Normal) 3. Visual Field Loss - 0(No visual loss) 4. Facial Palsy - 0(Normal) 5a. Left Arm: Motor (10-second hold) - 0(No drift) 5b. Right Arm: Motor (10-second hold) - 0(No drift) 6a. Left Leg: Motor (5-second hold - always test supine) - 0(No drift) 6b. Right Leg: Motor (5-second hold - always test supine) - 0(No drift) 7. Limb Ataxia (finger/nose \T\ heel/hutson - test with eyes open) - 0(Absent) 8. Sensory Loss (pinprick arms/legs/face) - 0(Normal) 9. Best Language: Aphasia (description/naming/reading) - 0(No aphasia) Initials: db NIH Stroke Scale - NIH Stroke Score Date: 03/10/2025 Time: 15:30 Total Score = 0 10. Dysarthria (speech clarity - read or repeat words) - 0(Normal) 11. Extinction and Inattention (visual/tactile/auditory/spatial/personal) - 0(No abnormality) 1a. Level of Consciousness (LOC) - 0(Alert) 1b. Level of Consciousness (LOC) (Month \T\ Age) - 0(Both) 1c. LOC Commands (Open \T\ Closes Eyes/Structural Steel Equipment Erector) - 0(Both) 2. Best Gaze (Lateral Gaze Paresis) - 0(Normal) 3. Visual Field Loss - 0(No visual loss) 4. Facial Palsy - 0(Normal) 5a. Left Arm: Motor (10-second hold) - 0(No drift) 5b. Right Arm: Motor (10-second hold) - 0(No drift) 6a. Left Leg: Motor (5-second hold - always test supine) - 0(No drift) 6b. Right Leg: Motor (5-second hold - always test supine) - 0(No drift) 7. Limb Ataxia (finger/nose \T\ heel/hutson - test with eyes open) - 0(Absent) 8. Sensory Loss (pinprick arms/legs/face) - 0(Normal) 9. Best Language: Aphasia (description/naming/reading) - 0(No aphasia) Initials: db NIH Stroke Scale - NIH Stroke Score Date: 03/10/2025 Time: 17:30 Total Score = 0 10. Dysarthria (speech clarity - read or repeat words) - 0(Normal) 11. Extinction and Inattention (visual/tactile/auditory/spatial/personal) - 0(No abnormality) 1a. Level of Consciousness (LOC) - 0(Alert) 1b. Level of Consciousness (LOC) (Month \T\ Age) - 0(Both) 1c. LOC Commands (Open \T\ Closes Eyes/Structural Steel Equipment Erector) - 0(Both) 2. Best Gaze (Lateral Gaze Paresis) - 0(Normal) 3. Visual Field Loss - 0(No visual loss) 4. Facial Palsy - 0(Normal) 5a. Left Arm: Motor (10-second hold) - 0(No drift) 5b. Right Arm: Motor (10-second hold) - 0(No drift) 6a. Left Leg: Motor (5-second hold - always test supine) - 0(No drift) 6b. Right Leg: Motor (5-second hold - always test supine) - 0(No drift) 7. Limb Ataxia (finger/nose \T\ heel/hutson - test with eyes open) - 0(Absent) 8. Sensory Loss (pinprick arms/legs/face) - 0(Normal) 9. Best Language: Aphasia (description/naming/reading) - 0(No aphasia) Initials: db Signatures: Dispatcher [employer] EDMS Tea Stoner Irene, Jeffery Ortega RN RN JULIETH bp mEmanuel Sears DO DO ms3 Tiffanie Resendiz RN RN db CARMEN WILCOX RN RN dd2 Alfonzo Phillip, FINANCIAL COMPLIANCE MANAGER-C FINANCIAL COMPLIANCE MANAGER-Cdr5 Corrections: (The following items were deleted from the chart) 17:13 14:25 [facility]
--- NOTE | 2025-03-10 14:26 | ER ---
Nurse's Notes [facility] Name: Loly Edouard Age: 60 yrs Sex: Female : 1965 Arrival Date: 03/10/2025 Time: 12:37 Bed 8 Private MD: Diagnosis: Dizziness and giddiness Presentation: 03/10 13:06 Chief complaint: Patient states: SHE FELT WEAK, DIZZY AND UNABLE TO GET HER WORDS OUT. dd2 PT REPORTS THIS BEGAN AT NOON AND HAD ALL RESOLVED EXCEPT FOR FEELING WEAK. Coronavirus screen: At this time, the client does not indicate any symptoms associated with coronavirus-19. Ebola Screen: No symptoms or risks identified at this time. No acute neurological deficit is noted. Pre-hospital glucose is not applicable to this patient. Initial Sepsis Screen: Does the patient meet any 2 criteria? No. Patient's initial sepsis screen is negative. Does the patient have a suspected source of infection? No. Patient's initial sepsis screen is negative. Risk Assessment: Do you want to hurt yourself or someone else? Patient reports no desire to harm self or others. Onset of symptoms was March 10, 2025 at 12:00. 13:06 Method Of Arrival: Ambulatory dd2 13:06 Acuity: ANDRE 2 dd2 Triage Assessment: 13:08 The onset of the patients symptoms was March 10, 2025 at 12:00. General: Appears in dd2 no apparent distress. Behavior is calm, cooperative, appropriate for age. Pain: Denies pain. Neuro: Level of Consciousness is awake, alert, obeys commands, Oriented to person, place, time, situation, Appropriate for age Manager Baby are equal bilaterally Moves all extremities. Gait is steady, Speech is normal, Facial symmetry appears normal, Pupils are PERRLA, Intact Reports dizziness, weakness DIFFICULTY SPEAKING . Stroke Activation: Physician: ED Attending; Name: JOSEPHINE CABRERA; Notified At: ; Arrived At: Physician: Mid-Level Provider; Name: ; Notified At: ; Arrived At: Physician: [not used]; Name: ; Notified At: ; Arrived At: Physician: [not used]; Name: ; Notified At: ; Arrived At: Physician: [not used]; Name: ; Notified At: ; Arrived At: Historical: - Allergies: 13:08 No Known Allergies; dd2 - Home Meds: 13:25 losartan-hydrochlorothiazide 50-12.5 mg oral tablet daily [Active]; gabapentin 300 mg iw oral capsule daily [Active]; citalopram 20 mg tablet daily [Active]; montelukast 10 mg oral tablet every evening [Active]; ibuprofen 800 mg Oral tablet [Active]; Tessalon Perles Oral [Active]; - PMHx: 13:08 Hypertensive disorder; ALLERGIES; dd2 - PSHx: 13:08 HERNIA REPAIR; dd2 - Immunization history:: Adult Immunizations unknown. - Infectious Disease History:: Denies. - Social history:: Smoking status: Patient reports the use of cigarette tobacco products, smokes one pack cigarettes per day. Screenin:30 [place] Swallow Protocol Exclusion Criteria: Unable to remain alert for testing: No NPO db for medical/surgical reason by provider order No Head-of-bed restricted <30 degrees Tracheostomy tube present No No thin liquids due to preexisting dysphagia/baseline modified diet thickened liquids No Exclusion Criteria Result: Proceed Brief Cognitive Screen What is your name? Normal, Where are you right now? Normal, What year is it? Normal. Oral Mechanism Examination Facial Symmetry: Normal, Motion: Normal, Lip Closure: Normal, Oral Mechanism Result: Normal. 3 oz Water Swallow Challenge: Pt able to drink all water without stopping, coughing, choking or throat clearing: Yes Result: PASS. 13:54 [facility] ED Fall Risk Assessment (Adult) History of falling in the last 3 months, db including since admission No falls in past 3 months (0 pts) Confusion or Disorientation No (0 pts) Intoxicated or Sedated No (0 pts) Impaired Gait No (0 pts) Mobility Assist Device Used No (0 pt) Altered Elimination No (0 pt) Score/Fall Risk Level 0 - 2 = Low Risk Oriented to surroundings, Maintained a safe environment. Abuse screen: Denies threats or abuse. Denies injuries from another. Nutritional screening: No deficits noted. Tuberculosis screening: No symptoms or risk factors identified. Assessment: 13:30 VAN Scoring: Arm Drift: Patients demonstrates NO arm weakness. Patient is VAN Negative. db Visual Disturbance: No visual disturbance noted. Aphasia: No aphasia noted. Neglect: No neglect noted. Wanda Swallow Protocol Exclusion Criteria: Exclusion Criteria Result: Proceed Brief Cognitive Screen What is your name? Where are you right now? What year is it? Normal. Oral Mechanism Examination Oral Mechanism Result: Normal. 3 oz Water Swallow Challenge: Pt able to drink all water without stopping, coughing, choking or throat clearing: Yes Result: PASS MD Notified: Josephine VAZQUEZ-Glenroy. TNKase (Tenecteplase) Screening: Not Applicable. 14:00 General: Appears in no apparent distress. comfortable, Behavior is calm, cooperative. db Neuro: Level of Consciousness is awake, alert, obeys commands, Oriented to person, place, time, situation, Speech is normal. Respiratory: Airway is patent Respiratory effort is even, unlabored, Respiratory pattern is regular, symmetrical. 15:05 Reassessment: Patient appears in no apparent distress at this time. Patient and/or db family updated on plan of care and expected duration. Pain level reassessed. Patient is alert, oriented x 3, equal unlabored respirations, skin warm/dry/pink. PT AMBULATORY TO RESTROOM WITH STEADY GATE. 15:30 Reassessment: Patient appears in no apparent distress at this time. Patient and/or db family updated on plan of care and expected duration. Pain level reassessed. Patient is alert, oriented x 3, equal unlabored respirations, skin warm/dry/pink. 16:16 Reassessment: Patient appears in no apparent distress at this time. Patient and/or db family updated on plan of care and expected duration. Pain level reassessed. Patient is alert, oriented x 3, equal unlabored respirations, skin warm/dry/pink. 16:33 Reassessment: PATIENT AMBULATORY TO RESTROOM. db Vital Signs: 13:00 BP 133 / 64; Pulse 74; Resp 18; Temp 98; Pulse Ox 98% ; db 13:30 BP 134 / 56; Pulse 68; Resp 16; Pulse Ox 98% on R/A; db 14:00 BP 141 / 59; Pulse 81; Resp 16; Pulse Ox 99% ; db 14:30 BP 131 / 39; Pulse 74; Pulse Ox 98% ; db 15:00 BP 128 / 53; Pulse 67; Resp 16; Pulse Ox 98% ; db 15:30 BP 130 / 61; Pulse 70; db 16:00 BP 112 / 60; Pulse 63; Resp 16; Pulse Ox 100% ; db 16:30 BP 129 / 75; Pulse 71; Resp 16; Pulse Ox 96% ; db 17:00 BP 116 / 61; Pulse 70; Resp 16; Pulse Ox 97% ; db 17:30 BP 153 / 72; Pulse 83; Resp 16; Pulse Ox 100% on R/A; db 18:00 BP 134 / 59; Pulse 70; Resp 16; Pulse Ox 99% ; db [place] Coma Score: 16:30 Eye Response: spontaneous(4). Motor Response: obeys commands(6). Verbal Response: db oriented(5). Total: 15. NIH Stroke Scale Scores: 13:30 NIHSS Score: 0 db 13:30 NIHSS Score: 0 db 15:30 NIHSS Score: 0 db 17:30 NIHSS Score: 0 db ED Course: 12:39 Patient arrived in ED. al6 12:40 Josephine Cabrera FNP-C is PHCP. dr5 12:40 Emmanuel Sears DO is Attending Physician. dr5 13:00 CT Stroke Brain w/o Contrast In Process Unspecified. EDMS 13:06 Tiffanie Resendiz, RN is Primary Nurse. db 13:06 CT Head Angio In Process Unspecified. EDMS 13:06 CT Neck Angio In Process Unspecified. EDMS 13:08 Triage completed. dd2 13:08 Arm band placed on right wrist. dd2 13:32 Stroke CXR 1 View In Process Unspecified. EDMS 13:48 Initial lab(s) drawn, by ED staff, sent to lab. Inserted saline lock: 20 gauge in right ts3 antecubital area, using aseptic technique. Blood collected. Flushed with 10 mL NS. 13:49 EKG done, by ED staff, reviewed by Josephine FOOTE. ts3 14:24 Carlos Bunn MD is Hospitalizing Provider. dr5 16:15 Patient has correct armband on for positive identification. Bed in low position. Call db light in reach. Side rails up X 1. Provided Education on: TIA. Client placed on continuous cardiac and pulse oximetry monitoring. NIBP monitoring applied. manager monitoring on. Pulse ox on. NIBP on. Warm blanket given. Pillow given. 18:30 No provider procedures requiring assistance completed. Patient admitted, IV remains in db place. Administered Medications: 13:51 Drug: NS 0.9% IV 1000 ml IV at 1000 ml once; to be given as a bolus over 60 minutes db Route: IV; Rate: 1000 ml; Site: right antecubital; 15:17 Follow up: Response: No adverse reaction; IV Status: Completed infusion; IV Intake: db 1000ml 15:30 Drug: Aspirin PO Chewable Tablet 324 mg PO once; 81 mg tablets x 4 Route: PO; bp 15:36 Follow up: Response: No adverse reaction bp Medication: 16:16 VIS not applicable for this client. db Point of Care Testing: Blood Glucose: 13:08 Blood Glucose: 97 mg/dL; dd2 Ranges: Intake: 15:17 IV: 1000ml; Total: 1000ml. db Outcome: 14:25 Decision to Hospitalize by Provider. dr5 18:30 Admitted to Med/surg db 18:30 Condition: stable 18:30 Instructed on the need for admit, 18:33 Patient left the ED. NIH Stroke Scale - NIH Stroke Score Date: 03/10/2025 Time: 13:30 Total Score = 0 10. Dysarthria (speech clarity - read or repeat words) - 0(Normal) 11. Extinction and Inattention (visual/tactile/auditory/spatial/personal) - 0(No abnormality) 1a. Level of Consciousness (LOC) - 0(Alert) 1b. Level of Consciousness (LOC) (Month \T\ Age) - 0(Both) 1c. LOC Commands (Open \T\ Closes Eyes/Tour Production Supervisor) - 0(Both) 2. Best Gaze (Lateral Gaze Paresis) - 0(Normal) 3. Visual Field Loss - 0(No visual loss) 4. Facial Palsy - 0(Normal) 5a. Left Arm: Motor (10-second hold) - 0(No drift) 5b. Right Arm: Motor (10-second hold) - 0(No drift) 6a. Left Leg: Motor (5-second hold - always test supine) - 0(No drift) 6b. Right Leg: Motor (5-second hold - always test supine) - 0(No drift) 7. Limb Ataxia (finger/nose \T\ heel/hutson - test with eyes open) - 0(Absent) 8. Sensory Loss (pinprick arms/legs/face) - 0(Normal) 9. Best Language: Aphasia (description/naming/reading) - 0(No aphasia) Initials: db NIH Stroke Scale - NIH Stroke Score Date: 03/10/2025 Time: 13:30 Total Score = 0 10. Dysarthria (speech clarity - read or repeat words) - 0(Normal) 11. Extinction and Inattention (visual/tactile/auditory/spatial/personal) - 0(No abnormality) 1a. Level of Consciousness (LOC) - 0(Alert) 1b. Level of Consciousness (LOC) (Month \T\ Age) - 0(Both) 1c. LOC Commands (Open \T\ Closes Eyes/Tour Production Supervisor) - 0(Both) 2. Best Gaze (Lateral Gaze Paresis) - 0(Normal) 3. Visual Field Loss - 0(No visual loss) 4. Facial Palsy - 0(Normal) 5a. Left Arm: Motor (10-second hold) - 0(No drift) 5b. Right Arm: Motor (10-second hold) - 0(No drift) 6a. Left Leg: Motor (5-second hold - always test supine) - 0(No drift) 6b. Right Leg: Motor (5-second hold - always test supine) - 0(No drift) 7. Limb Ataxia (finger/nose \T\ heel/hutson - test with eyes open) - 0(Absent) 8. Sensory Loss (pinprick arms/legs/face) - 0(Normal) 9. Best Language: Aphasia (description/naming/reading) - 0(No aphasia) Initials: db NIH Stroke Scale - NIH Stroke Score Date: 03/10/2025 Time: 15:30 Total Score = 0 10. Dysarthria (speech clarity - read or repeat words) - 0(Normal) 11. Extinction and Inattention (visual/tactile/auditory/spatial/personal) - 0(No abnormality) 1a. Level of Consciousness (LOC) - 0(Alert) 1b. Level of Consciousness (LOC) (Month \T\ Age) - 0(Both) 1c. LOC Commands (Open \T\ Closes Eyes/Tour Production Supervisor) - 0(Both) 2. Best Gaze (Lateral Gaze Paresis) - 0(Normal) 3. Visual Field Loss - 0(No visual loss) 4. Facial Palsy - 0(Normal) 5a. Left Arm: Motor (10-second hold) - 0(No drift) 5b. Right Arm: Motor (10-second hold) - 0(No drift) 6a. Left Leg: Motor (5-second hold - always test supine) - 0(No drift) 6b. Right Leg: Motor (5-second hold - always test supine) - 0(No drift) 7. Limb Ataxia (finger/nose \T\ heel/hutson - test with eyes open) - 0(Absent) 8. Sensory Loss (pinprick arms/legs/face) - 0(Normal) 9. Best Language: Aphasia (description/naming/reading) - 0(No aphasia) Initials: db NIH Stroke Scale - NIH Stroke Score Date: 03/10/2025 Time: 17:30 Total Score = 0 10. Dysarthria (speech clarity - read or repeat words) - 0(Normal) 11. Extinction and Inattention (visual/tactile/auditory/spatial/personal) - 0(No abnormality) 1a. Level of Consciousness (LOC) - 0(Alert) 1b. Level of Consciousness (LOC) (Month \T\ Age) - 0(Both) 1c. LOC Commands (Open \T\ Closes Eyes/Tour Production Supervisor) - 0(Both) 2. Best Gaze (Lateral Gaze Paresis) - 0(Normal) 3. Visual Field Loss - 0(No visual loss) 4. Facial Palsy - 0(Normal) 5a. Left Arm: Motor (10-second hold) - 0(No drift) 5b. Right Arm: Motor (10-second hold) - 0(No drift) 6a. Left Leg: Motor (5-second hold - always test supine) - 0(No drift) 6b. Right Leg: Motor (5-second hold - always test supine) - 0(No drift) 7. Limb Ataxia (finger/nose \T\ heel/hutson - test with eyes open) - 0(Absent) 8. Sensory Loss (pinprick arms/legs/face) - 0(Normal) 9. Best Language: Aphasia (description/naming/reading) - 0(No aphasia) Initials: db Signatures: Dispatcher [employer] EDTaylor Wood RN RN Lissette Crawford RN RN ss Peltier, Brian, RN RN bp Benton, Danielle, RN RN db CARMEN WILCOX RN RN dd2 Josephine Cabrera, ROLL TESTER-C ROLL TESTER-Cdr5 Isatu Dominguez al6 pAple Mays ts3
--- NOTE | 2025-03-10 15:21 | P.HP ---
Certification for Inpatient Patient admitted to: Observation With expected LOS: <2 Midnights Patient will require the following post-hospital care: None Practitioner: I am a practitioner with admitting privileges, knowledge of patient current condition, hospital course, and medical plan of care. Services: Services provided to patient in accordance with Admission requirements found in Title 42 Section 412.3 of the Code of Federal Regulations Patient History Date of Service: 03/10/25 Reason for admission: TIA History of Present Illness: Patient is a 60-year-old female with past medical history of hypertension, pre- diabetes, depression, and sciatica who presents to the ER with dizziness and dysarthria. Her symptoms started around noon while on the phone with her daughter and resolved within 10 minutes. She had no muscle weakness or decrease in strength in her limbs. Presently, she states that she is feeling well and denies headache, vision changes, or dizziness. She states that she is dealing with a productive cough that started last week. Her sputum is brown in color. The cough has not improved despite OTC medications and supportive care. She smokes 1/2 pack a day for the past 18 years. She has never been diagnosed with COPD but does report seasonal allergies. She denies use of alcohol or any illicit drugs. Allergies hydrocodone [Hydrocodone] Allergy (Intermediate, Verified 04/21/24 12:17) Nausea/Vomiting Home Medications: Citalopram [Celexa*] 20 mg PO DAILY 04/21/24 Gabapentin 3 cap PO DAILY 04/21/24 Losartan/Hydrochlorothiazide [Losartan-Hctz 50-12.5 mg Tab] 1 tab PO DAILY 04/21/24 Montelukast [Singulair*] 1 tab PO DAILY 04/21/24 Albuterol Inhaler [Ventolin Inhaler*] 2 puff IH Q6H PRN #1 inh 03/11/25 Aspirin [Aspirin EC 81 MG] 81 mg PO DAILY #30 tab 03/11/25 Atorvastatin Calcium [Lipitor] 40 mg PO BEDTIME #30 tab 03/11/25 Benzonatate [Tessalon Perle] 200 mg PO TID #30 cap 03/11/25 Cefdinir [Cefdinir*] 300 mg PO BID #14 cap 03/11/25 predniSONE [Deltasone] 20 mg PO DAILY #7 tab 03/11/25 - Past Medical/Surgical History -: diabetes -: sciatica -: restless leg syndrome -: hypertension -: Cholecystectomy -: umbilical hernia - Family History Mother Medical History: Cancer Notes: pancreatic - Social History Smoking Status: Never smoker Alcohol use: No CD- Drugs: No Review of Systems 10-point ROS is otherwise unremarkable General: Weakness Eyes: Unremarkable ENT: Unremarkable Respiratory: Cough, Sputum, Wheezing Cardiovascular: Unremarkable Genitourinary: Unremarkable Musculoskeletal: Unremarkable Integumentary: Unremarkable Neurological: Unremarkable Lymphatics: Unremarkable Physical Examination - Vital Signs Temperature: 98 F Blood Pressure: 128/53 Pulse: 70 Respirations: 24 Pulse Ox (%): 99 - Physical Exam General: Alert, In no apparent distress, Oriented x3 HEENT: Atraumatic, Normocephalic, PERRLA, EOMI Neck: Supple, No Thyromegaly, No LAD Respiratory: Expiratory wheezes Cardiovascular: No edema, Normal pulses, Regular rate/rhythm, Normal S1 S2 Capillary refill: Brisk Gastrointestinal: Normal bowel sounds Musculoskeletal: No clubbing, No swelling Integumentary: No rashes Neurological: Normal gait, Normal speech, Normal strength at 5/5 x4 extr, Normal tone, Sensation intact, Cranial nerves 3-12 intact, Normal affect Lymphatics: No axilla or inguinal lymphadenopathy External genitalia: Deferred Rectal: Deferred - Studies Laboratory Data (last 24 hrs) 03/10/25 03/10/25 03/10/25 12:58 12:58 12:58 WBC 8.80 Hgb 12.4 Hct 37.3 Plt Count 270 PT 11.8 INR 1.05 APTT 31.9 Sodium 138 Potassium 3.8 BUN 23 H Creatinine 1.60 H Glucose 91 Assessment & Plan - Problems (Diagnosis) (1) TIA (transient ischemic attack) Status: Acute (2) Metabolic syndrome Status: Acute - Plan continue with anti-platelet therapy and statin therapy. Continue with strict blood pressure pressure control will await MRI and possible discharge home later today. Discharge Plan: Home Plan to discharge in: 24 Hours - Advance Directives Does patient have a Living Will: No Does patient have a Durable POA for Healthcare: No - Code Status/Comfort Care Code Status Assessed: Yes Code Status: Full Code Critical Care: No Time Spent Managing PTS Care (In Minutes): 45
[2025-03-10] MEDS ORDERED: ASPIRIN 81 MG CHEWABLE TABLET ONE (15:31)
[2025-03-10] MEDS ORDERED: ONDANSETRON 4 MG/2 ML VIAL IV PRN (17:03)
[2025-03-10] MEDS ORDERED: ACETAMINOPHEN 500 MG TAB PO PRN (17:03)
[2025-03-10] MEDS: POTASSIUM CL SA 10 MEQ TAB PO ONE ×2 (17:57→20:18)
[2025-03-10] MEDS ORDERED: NA CHLORIDE 0.9% 1,000 ML IV SCH (18:00)
[2025-03-10] MEDS: NA CHLORIDE 0.9% 1,000 ML IV SCH (18:37)
[2025-03-10] MEDS: ATORVASTATIN 80 MG TAB PO SCH (20:18)
[2025-03-10] MEDS ORDERED: ATORVASTATIN 20 MG TAB PO SCH (21:00)
[2025-03-10 22:55] VITALS: BMI 40.7
[2025-03-11 05:22] LABS: Absolute Lymphocytes (CBC) 2.4 K/uL (0.7-4.9); Hematocrit 32.6 % (36.0-45.0); Hemoglobin 11.3 g/dL (12.0-15.0); MCH 32.8 pg (27.0-35.0); MCHC 34.6 g/dL (32.0-36.0); MCV 94.8 fL (80-100); MPV 8.6 fL (7.6-11.3); Nucleated RBC Absolute Count 0.0 (0-0); Nucleated Red Blood Cells % 0.1 % (0-0); RBC Red Blood Cell Count 3.44 M/uL (3.86-4.86); White Blood Count 6.30 thou/uL (4.3-10.9)
[2025-03-11 05:30] LABS: PT Prothrombin Time 11.8 SECONDS (10-13.0); PTT, Activated Partial Thromb 32.6 SECONDS (27.2-37.4); Protime INR 1.05
[2025-03-11 05:45] LABS: ALT/SGPT 17.0 U/L (13-56); AST/SGOT 18.0 U/L (15-37); Albumin 3.1 g/dL (3.4-5.0); Albumin/Globulin Ratio 1.0 (1.1-1.8); Alkaline Phosphatase 78.0 U/L (45-117); Anion Gap 5.5 mEq/L (5.0-15.0); BUN Blood Urea Nitrogen 16.0 mg/dL (7-18); C-Reactive Protein 13.3 mg/L (<3.00); Globulin 3.1 g/dL (2.3-3.5); Glucose Level 102.0 mg/dL (74-106); HDL Cholesterol 58.0 mg/dL (40-60); LDL Cholesterol, Calculated 94.0 mg/dL (<130); LDL Cholesterol,Calc NonReport 94.0; Magnesium 1.9 mg/dL (1.6-2.4); Potassium 4.5 mEq/L (3.5-5.1); Thyroid Stimulating Hormone 0.969 uIU/mL (0.358-3.740)
[2025-03-11] MEDS ORDERED: ASPIRIN EC 81 MG TAB PO SCH (09:00)
[2025-03-11 09:03] VITALS: O2SAT 96
[2025-03-11] MEDS: ENOXAPARIN 40 MG/0.4 ML SQ SCH (09:16)
[2025-03-11] MEDS: ASPIRIN EC 81 MG TAB PO SCH (09:16)
[2025-03-11] MEDS: LORazepam 2 MG/ML VIAL IV ONE (11:32)
--- NOTE | 2025-03-11 13:13 | RAD REPORT ---
EXAMINATION: MRI BRAIN WITHOUT CONTRAST CLINICAL INDICATION: Female, 60 years old.[facility] TECHNIQUE: Multiplanar multisequence MR images of the brain were obtained without intravenous contras t. Unless otherwise specified, incidental findings do not require dedicated imaging follow-up. COMPARISON: Head CT of the same day FINDINGS: INTRACRANIAL: Midline structures are unremarkable. Single left frontal juxtacortical focus of diffus ion signal abnormality, series 7 image 64. No appreciable corresponding T2/FLAIR hyperintensity. Other nonspecific mild T2/FLAIR hyperintensities in the periventricular and deep white matter regions , likely representing chronic microvascular ischemic changes. There is no mass effect or midline shift. No abnormal extraaxial fluid collection. VASCULATURE: Normal signal voids in the larger intracranial arteries and dural venous sinuses. SINUSES: The paranasal sinuses and mastoid air cells are predominantly clear. BONE: The marrow signal pattern is within normal limits. IMPRESSION: Single left frontal juxtacortical focus of diffusion signal abnormality, compatible with a small acut e infarct. No significant mass effect or evidence of intracranial hemorrhage. THIS REPORT CONTAINS FINDINGS THAT MAY BE CRITICAL TO PATIENT CARE. The findings were verbally commun icated via telephone to Carlos Bunn MD on 03/11/2025 1:09 PM.
[2025-03-12] MEDS ORDERED: CITALOPRAM 10 MG TABLET PO SCH (09:00)
[2025-03-12] MEDS ORDERED: LOSARTAN/HCTZ 50-12.5 PO SCH (09:00)
[2025-03-12] MEDS ORDERED: MONTELUKAST 10 MG TAB PO SCH (09:00)
[2025-03-12] MEDS ORDERED: GABAPENTIN 300 MG CAP PO SCH (09:00)
[2025-03-15 12:45] VITALS: BP 128/53; TEMP 98
== END 2025-03-11 14:14 | disposition home or self-care (01) ==
LOC: ER 12:37 → ERHOLD 17:03 → 2ND 18:07
PROVIDERS: ADMIT Hospitalist; ATTEND Hospitalist
DX: G45.9 Transient cerebral ischemic attack, unspecified (principal); R42 Dizziness and giddiness; I10 Essential (primary) hypertension; F32.A Depression, unspecified; M54.30 Sciatica, unspecified side; R05.9 Cough, unspecified; E88.810 Metabolic syndrome; Z88.5 Allergy status to narcotic agent
CPT/HCPCS: 93005; 85025 ×2; 80048; 36415; 83735; 84100; 85610 ×2; 80061; 82565; 82947; 85730 ×2; 84443; 84484; 80053; 86140; 70496; 70498; 70450; 71045; 70551; 97161; 96360; 99285; Q9967; J1650; J7030 ×3; G0378 ×3